=== PATIENT | male | born 1995 | race Caucasian/White ===

== ENCOUNTER 2023-06-16 16:30 | Emergency (ER) | payer BC, OTHER ==
[2023-06-16] MEDS ORDERED: DOXY100T31 PO (16:59)
[2023-06-16] MEDS ORDERED: LIDOCAINE 1% INJ 20 ML VIAL INJ ONE (17:00)
[2023-06-16] MEDS ORDERED: cefTRIAXone 1,000 MG VIAL IV/IM IM ONE (17:00)
--- NOTE | 2023-06-16 17:01 | ED Integumentary General ---
General Chief Complaint: Skin/Wound Problems Stated Complaint: SORE IN GROIN AREA Nursing Triage Note: PT CO OF WOUND ON L TESTICLE THAT IS WORSENING. STATES HAS GENITAL WARTS. PT STATES THAT HERPES CAME BACK NEGATIVE. BUT [facility] HAS IS RETESTING. STATES L SIDE SCROTUM WOUND AND IS PAINFUL 5/10. STATES PAIN GOES UP INTO GROIN AREA. Source: patient Exam Limitations: no limitations (SANDRA KOENIG) History of Present Illness Date Seen by Provider: Jun 16, 2023 Time Seen by Provider: 16:56 Initial Comments Patient is a 27-year-old male who presents the ED for a painful sore to his left testicle. Noticed the area about 1 week ago. States the area has increased in size with increasing pain. Rates pain 5 out of 10. Does have a history of genital warts. Does take Imiquimod topical for the warts. Patient states he has been seen at [facility]. States he was tested for sexual transmitted infection through his urine which were unremarkable. Was concern for her herpes and was placed on valacyclovir without much improvement. Patient states he was swabbed today again for bacterial infection and was placed on ketoconazole topical. Patient is concerned because he is having pain and swollen lymph nodes in his groin. Not currently sexually active but has had sexual course in the past. Denies of any penile discharge, frequent urination, dysuria, abdominal pain, fever, chills, weight loss, oral lesions, fever, chills, visual change. (SANDRA KOENIG) Allergies and Home Medications Allergies Coded Allergies: No Known Drug Allergies (Unverified , 06/16/23) Patient Home Medication List Home Medication List Reviewed: Yes (SANDRA KOENIG) Doxycycline Monohydrate (Doxycycline Monohydrate) 100 Mg Tablet, 100 MG PO BID Prescribed by: KAITY CONTRERAS on 06/16/23 9383 Review of Systems Review of Systems Constitutional: No chills, No diaphoresis, No weakness EENTM: No ear pain, No blurred vision Respiratory: No cough Cardiovascular: No chest pain, No edema Gastrointestinal: No abdominal pain, No diarrhea, No nausea, No vomiting Genitourinary: No decreased output; other (Genital lesion) Musculoskeletal: No back pain, No gout Skin: change in color (SANDRA KOENIG) All Other Systems Reviewed Negative Unless Noted: Yes (SANDRA KOENIG) Past Tcslaxr-Ajdxvo-Ktaztn Hx Patient Social History Tobacco Use?: No Use of E-Cig and/or Vaping dev: Yes E-Cig or Vaping type used: Nicotine Substance use?: Yes Additional substance use comme: 121 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 Pt feels they are or have been: No (SANDRA KOENIG) Immunizations Up To Date Influenza Vaccine Up-to-Date: No; Not Current (SANDRA KOENIG) Past Medical History Surgery/Hospitalization HX: R LABRUIM REPAIRED (SANDRA KOENIG) Physical Exam Vital Signs Vital Signs - First Documented 06/16/23 06/16/23 16:43 18:40 Temp 35.7 Pulse 83 Resp 18 B/P (MAP) 167/94 (118) Pulse Ox 99 O2 Delivery Room Air (JUNE MOREL MD) Vital Signs Capillary Refill : Less Than 3 Seconds (SANDRA KOENIG) General Appearance: WD/WN, no apparent distress HEENT: PERRL/EOMI, normal ENT inspection, TMs normal, pharynx normal Neck: non-tender, full range of motion, supple Cardiovascular: regular rate, rhythm, no edema, no gallop, no JVD Respiratory: chest non-tender, lungs clear, normal breath sounds, no respiratory distress, no accessory muscle use Gastrointestinal: normal bowel sounds, non tender, soft Back: normal inspection, no CVA tenderness Extremities: normal range of motion, non-tender, normal inspection, no pedal edema Neurologic/Psychiatric: clinical rehab specialist II-XII nml as tested, no motor/sensory deficits, alert, normal mood/affect Skin: warm/dry, other (Dime size circular ulcerated lesion to the left testicle. Few areas surrounding erythematous papules. Mild exudate.) Lymphatic: no adenopathy (SANDRA KOENIG) Progress/Results/Core Measures Results/Orders Lab Results Laboratory Tests Test 06/16/23 17:10 Range/Units Urine Color YELLOW Urine Clarity CLEAR Urine pH 6.0 5-9 Urine Specific [place] 1.020 1.016-1.022 Urine Protein NEGATIVE NEGATIVE Urine Glucose (UA) NEGATIVE NEGATIVE Urine Ketones NEGATIVE NEGATIVE Urine Nitrite NEGATIVE NEGATIVE Urine Bilirubin NEGATIVE NEGATIVE Urine Urobilinogen 0.2 < = 1.0 MG/DL Urine Leukocyte Esterase NEGATIVE NEGATIVE Urine RBC (Auto) NEGATIVE NEGATIVE Urine RBC NONE /HPF Urine WBC NONE /HPF Urine Squamous Epithelial Cells NONE /HPF Urine Crystals NONE /LPF Urine Bacteria NEGATIVE /HPF Urine Casts NONE /LPF Urine Mucus NEGATIVE /LPF Urine Culture Indicated NO Syphilis Serology Non-Reactive Non-Reactive (JUNE MOREL MD) Vital Signs/I&O 06/16/23 06/16/23 16:43 18:40 Temp 35.7 35.7 Pulse 83 74 Resp 18 18 B/P (MAP) 167/94 (118) 140/86 Pulse Ox 99 98 O2 Delivery Room Air (JUNE MOREL MD) Blood Pressure Mean: 118 Departure Communication (PCP) Differential diagnosis STD, syphilis herpes, bacterial infection, yeast. On exam patient has a ulcerated lesion to the left testicle. Does have history of warts currently on a topical ointment cream. Currently sexually active with 1 partner for the past 9 years. Denies any penile discharge, pain with urination frequent urination, testicle swelling. Patient was concern for increasing pain. Had STD cultures outpatient performed over the past week which she states were unremarkable. Was seen again today had a bacterial swab performed and started on ketoconazole. This does not appear to be fungal. Few of the areas are concerning for herpes however more concern for potential STD. Patient received a dose of Rocephin here in the ED. RPR, urinalysis STD cultures were obtained. Urinalysis was unremarkable. Cultures currently pending. No section of course until results. Will discharge out patiently with doxycycline to cover chancre. Recommend follow-up your PCP in 2 to 3 days for reevaluation. If any worsening symptoms return back to ED. Did note inguinal lymphadenopathy. Does have some penile warts. (SANDRA KOENIG) Impression Primary Impression: Testicular lesion Disposition: HOME, SELF-CARE Condition: Stable Departure-Patient Inst. Decision time for Depature: 16:55 (SANDRA KOENIG) Referrals: [facility] (PCP/Family) Primary Care Physician Patient Instructions: General (DC) Scripts Doxycycline Monohydrate (Doxycycline Monohydrate) 100 Mg Tablet 100 MG PO BID for 14 Days, #28 TAB Prov: SANDRA KOENIG 06/16/23 Work/School Note: Work Release Form Date Seen in the Emergency Department: Jun 16, 2023 Return to Work: Jun 19, 2023 ATTENDING PHYSICIAN NOTE: I was physically present as attending physician in the emergency department during the care of this patient, but I was not directly involved in the decision making or delivery of care for this patient. (JUNE MOREL MD) SANDRA KOENIG Jun 16, 2023 17:01 JUNE MOREL MD Jun 18, 2023 03:54
[2023-06-16] MEDS ORDERED: LIDOCAINE 1% INJ 10 ML VIAL ONE (17:20)
[2023-06-16 17:41] LABS: BACTERIA,URINE NEGATIVE /HPF; BILIRUBIN,URINE NEGATIVE (NEGATIVE); CLARITY,URINE CLEAR; COLOR,URINE YELLOW; GLUCOSE, URINE (UA) NEGATIVE (NEGATIVE); KETONES,URINE NEGATIVE (NEGATIVE); LEUKOCYTE ESTERASE ,URINE NEGATIVE (NEGATIVE); NITRITE,URINE NEGATIVE (NEGATIVE); PROTEIN,URINE NEGATIVE (NEGATIVE)
[2023-06-16 18:40] VITALS: BP 140/86
== END 2023-06-16 18:41 | disposition home or self-care (01) ==
LOC: ER 16:32
DX: N50.89 Other specified disorders of the male genital organs (principal); F17.290 Nicotine dependence, other tobacco product, uncomplicated; Z71.6 Tobacco abuse counseling
CPT/HCPCS: 36415; 81000; 86780; 87491; 87591